=== PATIENT | female | born 1945 | race Caucasian/White ===

== ENCOUNTER 2018-10-11 07:42 | Day surgery (SDC) | payer MEDICARE, OTHER ==
[2018-10-06 12:46] VITALS: BMI 34.7
[2018-10-11 08:34] LABS: PTT 37.3 SEC (22.9-36.1); Prothrombin Time 13.1 SEC (12.0-14.7)
--- NOTE | 2018-10-11 13:07 | CT ---
CT GUIDED PERCUTANEOUS RIGHT ILIAC BONE MARROW ASPIRATION AND BIOPSY: 10/11/2018 HISTORY: Thrombocytopenia. TECHNIQUE: The procedure, including the risks and complications, were explained to the patient, and informed con sent was obtained. A limited noncontrasted CT scan was obtained through the pelvis with grid localiz er in place. An area was marked and then meticulously prepped and draped in the usual sterile fashion, overlying t he right iliac bone. The skin and subcutaneous tissues were infiltrated with buffered 1% Lidocaine f or local anesthesia. A small skin incision was made. A 10 gauge bone biopsy needle was advanced to the level of the iliac bone, and three axial noncontras kevon CT images were obtained. The needle was then advanced approximately 1 cm, just through the sbarina x, and bone marrow aspiration was obtained. Approximately 9 mL of bone aspiration material was obtai julianne. A 1 cm, 10 gauge bone biopsy was then obtained. The needle was removed. Direct pressure was a pplied for approximately 5 minutes, and a dry, sterile dressing was placed. The patient tolerated the procedure well and without immediate complication. Conscious sedation was performed with the intravenous administration of 1 mg of Versed and 50 mcg of fentanyl during the pro cedure. IMPRESSION: Technically successful CT guided percutaneous right iliac bone marrow aspiration and biopsy. POS: ANA
--- NOTE | 2018-10-12 14:03 | CT ---
CT GUIDED PERCUTANEOUS RIGHT ILIAC BONE MARROW ASPIRATION AND BIOPSY: 10/11/2018 HISTORY: Thrombocytopenia. TECHNIQUE: The procedure, including the risks and complications, were explained to the patient, and informed con sent was obtained. A limited noncontrasted CT scan was obtained through the pelvis with grid localiz er in place. An area was marked and then meticulously prepped and draped in the usual sterile fashion, overlying t he right iliac bone. The skin and subcutaneous tissues were infiltrated with buffered 1% Lidocaine f or local anesthesia. A small skin incision was made. A 10 gauge bone biopsy needle was advanced to the level of the iliac bone, and three axial noncontras kevon CT images were obtained. The needle was then advanced approximately 1 cm, just through the sabrina x, and bone marrow aspiration was obtained. Approximately 9 mL of bone aspiration material was obtai julianne. A 1 cm, 10 gauge bone biopsy was then obtained. The needle was removed. Direct pressure was a pplied for approximately 5 minutes, and a dry, sterile dressing was placed. The patient tolerated the procedure well and without immediate complication. Conscious sedation was performed with the intravenous administration of 1 mg of Versed and 50 mcg of fentanyl during the pro cedure. IMPRESSION: Technically successful CT guided percutaneous right iliac bone marrow aspiration and biopsy.
== END 2018-10-11 11:40 | disposition home or self-care (01) ==
LOC: CT 07:42
PROVIDERS: ATTEND Internal Medicine Hematology & Oncology
PROC: 0QB23ZX Excision of Right Pelvic Bone, Percutaneous Approach, Diagnostic (ICD-10-PCS; principal; 2018-10-11)
DX: D47.3 Essential (hemorrhagic) thrombocythemia (principal); E78.5 Hyperlipidemia, unspecified; M19.90 Unspecified osteoarthritis, unspecified site; J45.909 Unspecified asthma, uncomplicated; F41.9 Anxiety disorder, unspecified; F32.9 Major depressive disorder, single episode, unspecified; K21.9 Gastro-esophageal reflux disease without esophagitis; G47.33 Obstructive sleep apnea (adult) (pediatric); Z79.899 Other long term (current) drug therapy; Z79.01 Long term (current) use of anticoagulants; Z88.2 Allergy status to sulfonamides; Z88.5 Allergy status to narcotic agent
CPT/HCPCS: 20225; 36415; 77002; 85097; 85610; 85730; 88184; 88237; 88264; 88280; 88305; 88311; 88313; 88365